=== PATIENT | female | born 1990 | race Caucasian/White ===

== ENCOUNTER 2016-07-30 09:46 | Emergency (ER) | payer OTHER ==
[~2016-07-30] VITALS: Ht 172.7 cm; Wt 111.7 kg
[~2016-07-30 09:46] MED LIST: AMOXICILLIN500 MG PO; ATARAX,VISTARIL25 MG PO; BACTRIM,SEPT1 TABLET PO; FLEXERIL5 MG PO; HYDROCORTISON28.4 GM TP; KEFLEX500 MG PO; KENALOG,ARISTOC80 G1 TP; METFORMIN HCL500 MG PO; MOTRIN600 MG PO; NAPROSYN500 MG PO; NOHOMEMEDS; PEN-VEE K,VEET500 MG PO; PHENERGAN-CODE120 ML PO; PREDNISONE20 MG PO; PREDNISONE50 MG PO; PYRIDIUM200 MG PO; TYLENOL WITH C1 EACH PO; ULTRAM50 MG PO; VENTOLIN HFA18 GM IH; ZITHROMAX Z-PA250 MG PO
[2016-07-30] MEDS ORDERED: AUGMENTIN875 MG PO (11:46)
[2016-07-30 11:57] VITALS: BP 132/69
== END 2016-07-30 11:58 | disposition home or self-care (01) ==
LOC: EME 09:46
DX: J02.9 Acute pharyngitis, unspecified (principal)
CPT/HCPCS: 87651 90; 99281; 99285

== ENCOUNTER 2017-02-19 01:07 | Emergency (ER) | payer OTHER ==
[~2017-02-19] VITALS: Ht 172.7 cm; Wt 119.0 kg
[~2017-02-19 01:07] MED LIST changes: +AUGMENTIN875 MG PO
[2017-02-19 01:41] LABS: ADD MIUA? YES; BILIRUBIN NEGATIVE; BLOOD LARGE; COLOR YELLOW ((YELLOW)); GLUCOSE (STRIP) NEGATIVE; KETONES NEGATIVE; LEUKOCYTES LARGE; NITRITE NEGATIVE; PROTEIN (STRIP) 30; SPECIFIC GRAVITY 1.027 (1.000-1.030); UROBILINOGEN 0.2 MG/DL (0.2-1.0)
[2017-02-19 01:46] LABS: BACTERIA 1+ /HPF; EPITHELIAL CELLS 2+ /HPF; HYALINE CASTS 0-5 /LPF; MUCUS TRACE /LPF; RED BLOOD CELLS TNTC /HPF (0-5); UCUL ADDED? YES; WHITE BLOOD CELLS TNTC /HPF (0-5)
[2017-02-19] MEDS ORDERED: BACTRIM,SEPT1 TABLET PO (03:42)
[2017-02-19 04:01] VITALS: BP 132/91
== END 2017-02-19 04:02 | disposition home or self-care (01) ==
LOC: EME 01:07
DX: N39.0 Urinary tract infection, site not specified (principal); E11.9 Type 2 diabetes mellitus without complications; E28.2 Polycystic ovarian syndrome
CPT/HCPCS: 81003; 87086; 99281; 99284

== ENCOUNTER 2017-03-02 09:19 | Emergency (ER) | payer OTHER ==
[~2017-03-02] VITALS: Ht 172.7 cm; Wt 120.1 kg
[2017-03-02 09:47] VITALS: BP 133/80
[2017-03-02] MEDS ORDERED: NAPROSYN500 MG PO (10:30)
== END 2017-03-02 10:50 | disposition home or self-care (01) ==
LOC: EME 09:19
DX: M77.32 Calcaneal spur, left foot (principal)
CPT/HCPCS: 73610; 73630; 99281; 99284

== ENCOUNTER 2017-07-21 18:53 | Emergency (ER) | payer OTHER ==
[~2017-07-21] VITALS: Ht 172.7 cm; Wt 116.7 kg
[2017-07-21] MEDS ORDERED: AMOXICILLIN875 MG PO (20:41)
[2017-07-21] MEDS ORDERED: MOTRIN600 MG PO (20:41)
[2017-07-21 21:20] VITALS: BP 137/85
== END 2017-07-21 21:29 | disposition home or self-care (01) ==
LOC: EME 18:53
DX: J02.0 Streptococcal pharyngitis (principal)
CPT/HCPCS: 87502; 87651 90; 99281; 99283

== ENCOUNTER 2017-08-20 18:50 | Emergency (ER) | payer OTHER ==
[~2017-08-20] VITALS: Ht 172.7 cm; Wt 116.3 kg
[~2017-08-20 18:50] MED LIST changes: +AMOXICILLIN875 MG PO
[2017-08-20] MEDS ORDERED: PEN-VEE K,VEET500 MG PO (20:37)
[2017-08-20] MEDS ORDERED: NORCO 5/3251 TABLET PO (20:37)
[2017-08-20 20:52] VITALS: BP 122/76
== END 2017-08-20 20:53 | disposition home or self-care (01) ==
LOC: EME 18:50
DX: K04.7 Periapical abscess without sinus (principal)
CPT/HCPCS: 99281; 99283

== ENCOUNTER 2017-11-17 00:55 | Emergency (ER) | payer OTHER ==
[~2017-11-17] VITALS: Ht 172.7 cm; Wt 114.7 kg
[~2017-11-17 00:55] MED LIST changes: +NORCO 5/3251 TABLET PO
[2017-11-17] MEDS ORDERED: NAPROSYN500 MG PO (01:59)
[2017-11-17 02:23] VITALS: BP 140/84
== END 2017-11-17 02:24 | disposition home or self-care (01) ==
LOC: EXP 00:55 → EME 00:55 → EXP 02:24
DX: M79.671 Pain in right foot (principal); M79.642 Pain in left hand; M79.89 Other specified soft tissue disorders
CPT/HCPCS: 99281; 99284